=== PATIENT | male | born 1995 ===

== ENCOUNTER 2017-08-20 14:24 | Emergency (ER) | payer OTHER ==
[~2017-08-20] VITALS: Ht 180.3 cm; Wt 112.3 kg
[2017-08-20 14:37] VITALS: BP 153/86; PULSE 99; RESP 20; TEMP 99.2; O2SAT 98
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
[2017-08-20] MEDS ORDERED: DICL75TA PO (15:34)
[2017-08-20] MEDS ORDERED: BACL10TA PO (15:34)
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
== END 2017-08-20 17:12 | disposition home or self-care (01) ==
LOC: NEPK 14:24
DX: S96.911A Strain of unspecified muscle and tendon at ankle and foot level, right foot, initial encounter (principal); V23.4XXA Motorcycle driver injured in collision with car, pick-up truck or van in traffic accident, initial encounter
CPT/HCPCS: 73630; 99283